=== PATIENT | female | born 1940 | race Caucasian/White ===

== ENCOUNTER → 2017-10-06 | Outpatient (CLI) | payer OTHER ==
[~2017-10-06] MED LIST: ACEASPCAF; ACET325 PO; ACYC800 PO; ALBU.083IS IH; ALBU3IS INH; ALBU90I INH; ALBU90OI INH; AMLO5; ASCO500 PO; ASPI81CH; ASPI81CH PO; ASPI81EC; ATOR40TA PO; AZIT250 PO; B-100 COMPLEX100 MG PO; BENZ100A PO; BIOTIN1 MG PO; BUPR100ER; Budeprion Sr150 MG PO; CHOL10002 PO; CILO100 PO; CLAR500 PO; CLOM50A; CORRECTOL; Calcium Magnes1 EAC1 PO; DOCU100; DOCU100 PO; DOXY100 PO; ESCI10; ESCI10 PO; ESTR1; ESTR25VT; FAMO10; FAMO20; FERSU220EL PO; FLUSAL2505 IH; FURO20; FURO20 PO; FURO40; Flonase 0.05% N16 GM; GABA300; GABA300 PO; GUAI600T33 PO; HYDACE5 PO; HYDCHL25; HYDGUAL120 PO; HYDMOR2 PO; IBUP800; LAMO100; LEVSOD100; LEVSOD112; LEVSOD50 PO; LEVSOD75 PO; LORA.5; LORA1; LORA1 PO; LORA2; LORA2 PO; Lamictal200 MG PO; MELA3 PO; METO25ER PO; METO50ER PO; METPHE20; NUTRISOURCE FI1 EACH PO; OMEP20ER PO; OTC PAIN MED; OTC SLEEP AID; OXYACE5T PO; PANT40 PO; PILO5 PO; POTCHL20ER; POTCHL20ER PO; PRAV20; PRED20 PO; PREDNISONE; PROCODE120 PO; Plavix75 MG PO; QUET100 PO; QUET200 PO; QUET25; QUET300; SENNP; SEROQUEL; SIMV40 PO; SPIHYD; SPIRIVA; Seroquel Xr400 MG PO; TIOT18 IH; TRIAOIA; VIT1CAPS12 PO; VITB100; ZOLP10
== END | disposition home or self-care (01) ==
LOC: PLD 13:45 → LAB SHORT 13:45
DX: C44.722 Squamous cell carcinoma of skin of right lower limb, including hip (principal); C44.729 Squamous cell carcinoma of skin of left lower limb, including hip; C44.619 Basal cell carcinoma of skin of left upper limb, including shoulder; C44.629 Squamous cell carcinoma of skin of left upper limb, including shoulder
CPT/HCPCS: 88305

== ENCOUNTER → 2017-11-13 | Outpatient (CLI) | payer OTHER | LOC: LAB SHORT 12:24 → PLD 12:24 | DX: C44.612 Basal cell carcinoma of skin of right upper limb, including shoulder (principal) ==

== ENCOUNTER → 2017-12-18 | Outpatient (CLI) | payer OTHER | END | disposition home or self-care (01) | LOC: PLD 15:15 → LAB SHORT 15:15 | DX: C44.722 Squamous cell carcinoma of skin of right lower limb, including hip (principal); L28.1 Prurigo nodularis | CPT/HCPCS: 88305 ==

== ENCOUNTER 2018-09-07 12:42 | Inpatient (IN) | payer OTHER ==
[~2018-09-07] VITALS: Ht 160 cm; Wt 78.1 kg
[~2018-09-07 12:42] MED LIST changes: +ALPR.5 PO; +Aspir-Low81 MG PO; +CHOICEFUL VITA1 EACH PO; +CLOP75 PO; -ESCI10 PO; +ESCI20 PO; -FERSU220EL PO; +FURO40 PO; +Ferosul325 MG PO; +METO50 PO; +MUCINEX FAST-M1 EAC1 PO; +POTA10T PO
[2018-09-07 14:05] LABS: BASOPHILS ABSOLUTE AUTO 0.04 K/mm3 (0.00-0.23); BASOPHILS PERCENT AUTO 0 % (0-2); EOSINOPHILS ABSOLUTE AUTO 0.23 K/mm3 (0.00-0.68); EOSINOPHILS PERCENT AUTO 2 % (0-6); Hematocrit 40.3 % (33.0-51.0); Hemoglobin 13.3 g/dL (11.5-16.0); IMMATURE GRAN ABSOLUTE AUTO 0.02 K/mm3 (0.00-0.10); IMMATURE GRAN PERCENT AUTO 0 % (0-1); LYMPHOCYTES ABSOLUTE AUTO 1.98 K/mm3 (0.84-5.20); LYMPHOCYTES PERCENT AUTO 21 % (21-46); MONOCYTES PERCENT AUTO 6 % (4-13); Mean Corpuscular HGB 32.4 pg (26.0-34.0); Mean Corpuscular Volume 98 fL (80-100); NEUTROPHILS ABSOLUTE AUTO 6.63 K/mm3 (1.96-9.15); NEUTROPHILS PERCENT AUTO 70 % (41-73); Platelet Count 285 K/mm3 (150-400); RDW Coefficient Variation 13.8 % (11.7-14.2); RDW Standard Deviation 50.4 fL (35.1-46.3)
[2018-09-07 14:27] LABS: Alanine Aminotransfer (ALT/SGP 21 U/L (12-78); Albumin, Blood 3.1 g/dL (3.4-5.0); Alk Phos 96 U/L (50-136); Anion Gap 4 mmol/L (6-16); Aspartate Aminotrans (AST/SGOT 29 U/L (12-37); Bilirubin, Total 0.3 mg/dL (0.1-1.0); Blood Urea Nitrogen 13 mg/dL (8-24); Bun/Creatinine Ratio 15.9 (12.0-20.0); CO2, Blood 26 mmol/L (21-32); Calcium, Blood 8.9 mg/dL (8.5-10.1); Chloride, Blood 109 mmol/L (98-108); Creatinine, Blood 0.82 mg/dL (0.40-1.00); Globulin, Blood 3.1 g/dL (2.2-4.0); Glomerular Filtration Rate >60 (60-); Glucose, Blood 159 mg/dL (70-99); Potassium, Blood 4.4 mmol/L (3.5-5.5); Sodium, Blood 139 mmol/L (136-145); Total Protein, Blood 6.2 g/dL (6.4-8.2); Troponin I <0.015 ng/mL (0.000-0.040)
[2018-09-07] MEDS ORDERED: METO50ER PO (15:09)
[2018-09-07] MEDS ORDERED: Seroquel400 MG PO (15:09)
[2018-09-07] MEDS ORDERED: LEVFLO500 PO (15:09)
[2018-09-07] MEDS ORDERED: SPIRIVA RESPIMAT4 GM INH (15:10)
[2018-09-07] MEDS ORDERED: PROMETH-CODEIN 65 ML PO (15:10)
[2018-09-07] MEDS ORDERED: Tessalon200 MG PO (15:11)
[2018-09-07] MEDS ORDERED: BENZ100A PO (15:11)
[2018-09-07] MEDS ORDERED: TIOT18 INH (17:34)
--- NOTE | 2018-09-07 17:50 | NUR ---
1655 PT ADMITTED TO MEDICAL FLOOR, SELF TRANSFERED TO BED. PT ON 2L O2 NC, LUNGS WITH WHEEZES AND COARSE THROUGHOUT. PT WITH BARKY COUGH THAT PT REPORTS IS PRODUCTIVE. VSS. SAFETY AND ROOM ORIENTATION DISCUSSED WITH PT. PT DENIES PAIN, N/V.
--- NOTE | 2018-09-08 04:31 | NUR ---
SHIFT SUMMARY: PT IS ALERT AND ORIENTED. PT IS CALM AND COOPERATIVE WITH CARE. PT CALLS APPROPRIATELY. PT IS INDEPENDENT IN THE ROOM. PT REPORTS SOB UPON EXERTION WITH INTERMITTENT COUGH, MEDICATING PER EMAR, 2 L O2 KEEPING SATS > 90%. PT DENIES PAIN, NAUSEA, AND VOMITING. PT SLEPT MUCH OF THE NIGHT. NO ACUTE CHANGES OVERNIGHT. WILL REPORT TO DAY NURSE.
[2018-09-08 05:10] LABS: BASOPHILS ABSOLUTE AUTO 0.01 K/mm3 (0.00-0.23); BASOPHILS PERCENT AUTO 0 % (0-2); EOSINOPHILS PERCENT AUTO 0 % (0-6); Hematocrit 40.8 % (33.0-51.0); Hemoglobin 13.3 g/dL (11.5-16.0); IMMATURE GRAN ABSOLUTE AUTO 0.06 K/mm3 (0.00-0.10); IMMATURE GRAN PERCENT AUTO 1 % (0-1); LYMPHOCYTES ABSOLUTE AUTO 0.96 K/mm3 (0.84-5.20); LYMPHOCYTES PERCENT AUTO 9 % (21-46); MONOCYTES ABSOLUTE AUTO 0.19 K/mm3 (0.16-1.47); MONOCYTES PERCENT AUTO 2 % (4-13); Mean Corpuscular HGB 32.2 pg (26.0-34.0); Mean Corpuscular HGB Conc 32.6 g/dL (31.5-36.5); Mean Corpuscular Volume 99 fL (80-100); Mean Platelet Volume 9.3 fL (9.1-12.4); NEUTROPHILS ABSOLUTE AUTO 9.91 K/mm3 (1.96-9.15); NEUTROPHILS PERCENT AUTO 89 % (41-73); Platelet Count 270 K/mm3 (150-400); RDW Coefficient Variation 13.9 % (11.7-14.2); RDW Standard Deviation 50.2 fL (35.1-46.3); Red Blood Cell Count 4.13 M/mm3 (3.80-5.20); White Blood Cell Count 11.13 K/mm3 (4.00-11.30)
[2018-09-08 05:32] LABS: Alanine Aminotransfer (ALT/SGP 18 U/L (12-78); Albumin, Blood 3.1 g/dL (3.4-5.0); Alk Phos 90 U/L (50-136); Anion Gap 6 mmol/L (6-16); Aspartate Aminotrans (AST/SGOT 10 U/L (12-37); Bilirubin, Total 0.4 mg/dL (0.1-1.0); Blood Urea Nitrogen 17 mg/dL (8-24); CO2, Blood 26 mmol/L (21-32); Calcium, Blood 9.3 mg/dL (8.5-10.1); Chloride, Blood 109 mmol/L (98-108); Creatinine, Blood 0.89 mg/dL (0.40-1.00); Globulin, Blood 3.1 g/dL (2.2-4.0); Glomerular Filtration Rate >60 (60-); Glucose, Blood 198 mg/dL (70-99); Sodium, Blood 141 mmol/L (136-145); Total Protein, Blood 6.2 g/dL (6.4-8.2)
--- NOTE | 2018-09-08 16:54 | NUR ---
SHIFT SUMMARY PT HAS HAD NO ACUTE CHANGES THIS SHIFT, CONTINUES TO BECOME EASILY SOB, WILL CONT TO MONITOR UNTIL REPORT GIVEN TO NOC RN.
--- NOTE | 2018-09-09 05:12 | NUR ---
VSS, AFEBRILE, A/O, STABLE, SLEPT WELL, PT C/O CORTEZ/SOB EARLY IN THE SHIFT BUT WAS COAXED INTO ACCEPTING A BREATHING TX, SINCE THEN SHE HAS SLEPT DEEPLY W/NO COMPLAINTS. WILL REPORT TO ON-COMING SHIFT.
[2018-09-09 05:52] LABS: Anion Gap 7 mmol/L (6-16); Blood Urea Nitrogen 21 mg/dL (8-24); Bun/Creatinine Ratio 29.4 (12.0-20.0); CO2, Blood 27 mmol/L (21-32); Calcium, Blood 9.7 mg/dL (8.5-10.1); Chloride, Blood 109 mmol/L (98-108); Creatinine, Blood 0.72 mg/dL (0.40-1.00); Glomerular Filtration Rate >60 (60-); Glucose, Blood 169 mg/dL (70-99); Potassium, Blood 4.3 mmol/L (3.5-5.5); Sodium, Blood 143 mmol/L (136-145)
--- NOTE | 2018-09-09 19:09 | NUR ---
SHIFT SUMMARY: NO ACUTE CHANGES TO REPORT THIS SHIFT. PT A&O; CALM AND COOPERATIVE WITH CARE; INDEPENDENT IN ROOM. IV STEROIDS & BREATHING TREATMENTS CONTINUING. REPORTY GIVEN TO ONCOMING RN.
[2018-09-09 23:31] LABS: Adenovirus Not Detected (NOT DETECT); Bordetella pertussis Not Detected (NOT DETECT); Chlamydophila pneumoniae Not Detected (NOT DETECT); Coronavirus 229E Not Detected (NOT DETECT); Coronavirus HKU1 Not Detected (NOT DETECT); Coronavirus NL63 Not Detected (NOT DETECT); Coronavirus OC43 Not Detected (NOT DETECT); Human Metapneumovirus Not Detected (NOT DETECT); Human Rhinovirus/Enterovirus Not Detected (NOT DETECT); Influenza A Not Detected (NOT DETECT); Influenza A/2009-H1 Not Detected (NOT DETECT); Influenza A/H1 Not Detected (NOT DETECT); Influenza A/H3 Not Detected (NOT DETECT); Influenza B Not Detected (NOT DETECT); Mycoplasma pneumoniae Not Detected (NOT DETECT); Parainfluenza Virus 1 Not Detected (NOT DETECT); Parainfluenza Virus 2 Not Detected (NOT DETECT); Parainfluenza Virus 3 Not Detected (NOT DETECT); Parainfluenza Virus 4 Not Detected (NOT DETECT); Respiratory Syncytial Virus Not Detected (NOT DETECT)
--- NOTE | 2018-09-09 23:46 | NUR ---
PATIENT RESPIRATORY PANEL COLLECTED AND SENT TO LAB. NEGATIVE RESULTS. PATIENT TAKEN OUT OF DROPLET PRECAUTIONS.
--- NOTE | 2018-09-10 03:54 | NUR ---
SHIFT SUMMARY PATIENT HAD NO ACUTE CHANGES OBSERVED THIS SHIFT. AXOX 3 AND INDEPENDENT IN THE ROOM. TAKES MEDICATION WHOLE WITH WATER. VSS/AFEBRILE. BREATHING TX FROM RT. RESPIRATORY PANEL SET TO LAB AND NEGATIVE. ON 2L O2 NC. SHELLFISH MEAT SEPARATOR OPERATOR REPORTS ST 113. DENIES PAIN AND N/V. CALL LIGHT IN REACH. BED IN LOWEST POSITION. WILL CONTINUE TO MONITOR UNTIL DAY SHIFT NURSE ASSUMES CARE.
[2018-09-10 05:24] LABS: BASOPHILS ABSOLUTE AUTO 0.01 K/mm3 (0.00-0.23); BASOPHILS PERCENT AUTO 0 % (0-2); EOSINOPHILS PERCENT AUTO 0 % (0-6); Hematocrit 38.4 % (33.0-51.0); Hemoglobin 12.4 g/dL (11.5-16.0); IMMATURE GRAN ABSOLUTE AUTO 0.11 K/mm3 (0.00-0.10); IMMATURE GRAN PERCENT AUTO 1 % (0-1); LYMPHOCYTES ABSOLUTE AUTO 1.31 K/mm3 (0.84-5.20); LYMPHOCYTES PERCENT AUTO 9 % (21-46); MONOCYTES ABSOLUTE AUTO 0.59 K/mm3 (0.16-1.47); MONOCYTES PERCENT AUTO 4 % (4-13); Mean Corpuscular HGB Conc 32.3 g/dL (31.5-36.5); Mean Corpuscular Volume 99 fL (80-100); Mean Platelet Volume 9.1 fL (9.1-12.4); NEUTROPHILS ABSOLUTE AUTO 13.02 K/mm3 (1.96-9.15); NEUTROPHILS PERCENT AUTO 87 % (41-73); Platelet Count 263 K/mm3 (150-400); RDW Coefficient Variation 14.2 % (11.7-14.2); RDW Standard Deviation 51.9 fL (35.1-46.3); Red Blood Cell Count 3.88 M/mm3 (3.80-5.20); White Blood Cell Count 15.04 K/mm3 (4.00-11.30)
[2018-09-10 05:51] LABS: Anion Gap 5 mmol/L (6-16); Blood Urea Nitrogen 22 mg/dL (8-24); Bun/Creatinine Ratio 28.7 (12.0-20.0); CO2, Blood 28 mmol/L (21-32); Calcium, Blood 9.2 mg/dL (8.5-10.1); Chloride, Blood 109 mmol/L (98-108); Creatinine, Blood 0.77 mg/dL (0.40-1.00); Glomerular Filtration Rate >60 (60-); Glucose, Blood 148 mg/dL (70-99); Sodium, Blood 142 mmol/L (136-145)
--- NOTE | 2018-09-10 17:27 | NUR ---
PT AOX4 AND COOPERATIVE OF ALL CARE. PT INDEPENDENT IN ROOM AND CALLS APPROPRIATELY. PT CONTINUES TO STRUGLE WITH A PERSISTANT COUGH AND GET VERY TIRED DO TO THIS. PT IS TREATED PER EMAR FOR HER COUGH AND NEW ORDERS PLACED TO EMAR FOR THIS, SO FAR SHE HAS HAD LITTLE RELIEF. WILL CONTINUE TO MONITOR.
--- NOTE | 2018-09-11 03:37 | NUR ---
SHIFT SUMMARY PATIENT HAD NO ACUTE CHANGES OBSERVED THIS SHIFT. REPORTS HARSH COUGH. GAVE SCHEDULE 21:00 MEDICATION AT 20:42 SO PATIENT COULD GET TO SLEEP EARLIER. PATIENT BELIEVED HER MEDICATIONS WERE SCHEDULED FOR 20:OO AND SHE WAS INFORMED FOR 21:00. SHE REPORTS SHE LIKES TO GO TO BED EARLY. PIV REMAINS INTACT. FIELD CROP HARVEST CONTRACTOR REPORTS ST [address] W/PAC. ON 2L O2 NC. RA BASELINE. RT IN FOR BREATHING TX. PATIENT REPORTS SHE INFORMS RT NO BREATHING TX IF SLEEPING. CALL LIGHT IN REACH. BED IN LOWEST POSITION. WILL CONTINUE TO MONITOR UNTIL DAY SHIFT NURSE ASSUMES CARE.
[2018-09-11 05:17] LABS: BASOPHILS ABSOLUTE AUTO 0.02 K/mm3 (0.00-0.23); BASOPHILS PERCENT AUTO 0 % (0-2); EOSINOPHILS PERCENT AUTO 0 % (0-6); Hematocrit 38.2 % (33.0-51.0); Hemoglobin 12.4 g/dL (11.5-16.0); IMMATURE GRAN ABSOLUTE AUTO 0.14 K/mm3 (0.00-0.10); IMMATURE GRAN PERCENT AUTO 1 % (0-1); LYMPHOCYTES ABSOLUTE AUTO 1.58 K/mm3 (0.84-5.20); LYMPHOCYTES PERCENT AUTO 10 % (21-46); MONOCYTES ABSOLUTE AUTO 0.66 K/mm3 (0.16-1.47); MONOCYTES PERCENT AUTO 4 % (4-13); Mean Corpuscular HGB Conc 32.5 g/dL (31.5-36.5); Mean Corpuscular Volume 99 fL (80-100); Mean Platelet Volume 9.3 fL (9.1-12.4); NEUTROPHILS ABSOLUTE AUTO 13.23 K/mm3 (1.96-9.15); NEUTROPHILS PERCENT AUTO 85 % (41-73); Platelet Count 266 K/mm3 (150-400); RDW Coefficient Variation 14.3 % (11.7-14.2); RDW Standard Deviation 52.1 fL (35.1-46.3); Red Blood Cell Count 3.87 M/mm3 (3.80-5.20); White Blood Cell Count 15.63 K/mm3 (4.00-11.30)
--- NOTE | 2018-09-11 07:15 | NUR ---
Assumed care of patient with Cassy from cnc machinist 2nd shift nurse
--- NOTE | 2018-09-11 17:52 | NUR ---
Shift Summary A/O x 4; Patient is independent in room. Pleasant and cooperative with care. She had an episode of shortness of breath, breathing treatment was given by RT, tolerated well. Encouraged po fluids to help thin out secretions. Wheezing and coarse coughing still present, otherwise no acute changes this shift.
--- NOTE | 2018-09-12 05:40 | NUR ---
SHIFT SUMMARY PT SLEPT WELL DURING THE NIGHT, HAS HAD OXYGEN ON AT 2L/NC T/O THE NIGHT. NO ACUTE EVENTS NOTED DURING THE NIGHT, WILL CONTINUE TO MONITOR.
[2018-09-12 09:08] LABS: BASOPHILS ABSOLUTE AUTO 0.02 K/mm3 (0.00-0.23); BASOPHILS PERCENT AUTO 0 % (0-2); EOSINOPHILS PERCENT AUTO 0 % (0-6); Hematocrit 40.8 % (33.0-51.0); Hemoglobin 13.2 g/dL (11.5-16.0); IMMATURE GRAN PERCENT AUTO 2 % (0-1); LYMPHOCYTES ABSOLUTE AUTO 1.88 K/mm3 (0.84-5.20); LYMPHOCYTES PERCENT AUTO 11 % (21-46); MONOCYTES ABSOLUTE AUTO 0.47 K/mm3 (0.16-1.47); MONOCYTES PERCENT AUTO 3 % (4-13); Mean Corpuscular HGB 31.7 pg (26.0-34.0); Mean Corpuscular HGB Conc 32.4 g/dL (31.5-36.5); Mean Corpuscular Volume 98 fL (80-100); Mean Platelet Volume 9.3 fL (9.1-12.4); NEUTROPHILS ABSOLUTE AUTO 15.04 K/mm3 (1.96-9.15); NEUTROPHILS PERCENT AUTO 85 % (41-73); Platelet Count 309 K/mm3 (150-400); RDW Coefficient Variation 14.4 % (11.7-14.2); RDW Standard Deviation 52.2 fL (35.1-46.3); Red Blood Cell Count 4.16 M/mm3 (3.80-5.20); White Blood Cell Count 17.71 K/mm3 (4.00-11.30)
[2018-09-12 09:23] LABS: Anion Gap 6 mmol/L (6-16); Blood Urea Nitrogen 24 mg/dL (8-24); Bun/Creatinine Ratio 32.5 (12.0-20.0); CO2, Blood 27 mmol/L (21-32); Calcium, Blood 8.5 mg/dL (8.5-10.1); Chloride, Blood 107 mmol/L (98-108); Creatinine, Blood 0.74 mg/dL (0.40-1.00); Glomerular Filtration Rate >60 (60-); Glucose, Blood 143 mg/dL (70-99); Potassium, Blood 4.2 mmol/L (3.5-5.5); Sodium, Blood 140 mmol/L (136-145)
--- NOTE | 2018-09-12 16:23 | NUR ---
SHIFT SUMMARY PT A&OX4. PT ANXIOUS AT TIMES, COOPERATIVE WITH CARE. PT RESTING IN BED DURING SHIFT, UP AT SIDE OF BED FOR MEALS AND IND TO BATHROOM. PT SOB WITH EXERTION AND HARSH/MOIST COUGH, 92-93% ON 2.5L O2 VIA NC. PT DENIES PAIN AND N/V. PT RECEIVING IV SOLUMEDROL AND BREATHING TREATMETNS PER RT. CALLED DR HATFIELD TO CLARIFY ORDERS FOR DISCONTINUE TELEMETRY AND PROGRESS NOTE TO RESUME TELEMETRY, NEW ORDERS FOR TELEMETRY. HS IRREGULAR THIS AFTERNOON. VSS. NO OTHER ACUTE CHANGES NOTED DURING SHIFT WILL CONTINUE TO MONITOR UNTIL REPORT GIVEN TO ONCOMING RN.
--- NOTE | 2018-09-12 17:11 | NUR ---
NOTIFIED DR HATFIELD [facility] NSR AT 90, NEW ORDERS TO DISCONTINUE TELEMETRY
--- NOTE | 2018-09-12 19:04 | NUR ---
PT REPORTS HAVING "BLOODY" SPUTUM WHEN BLOWING NOSE. PT HAD 4CM X 1/2 CM RED, HARD MASS IN TISSUE, WITH NO FURTHER BLEEDING. PLACED HUMIDIFED O2. DISCUSSED WITH PRINTING SALES REPRESENTATIVE, MONICA, WITH HUMIDIFED O2 CONTINUE TO MONITOR AND DISCUSS WITH MICHAEL MENDEZ IN THE AM. WILL CONTINUE TO MONITOR.
--- NOTE | 2018-09-12 21:30 | NUR ---
1950 PT LYING IN BED, REPORTS SOB THAT INCREASES WITH ACTIVITY. ON 2L O2 NC HUMIDIFIED AT 93%. NON PRODUCTIVE COUGH. NO OTHER APPARENT SIGNS OF DISTRESS. CALL LIGHT IS IN REACH.
--- NOTE | 2018-09-13 00:02 | NUR ---
PT LYING IN BED, EYES CLOSED, APPEARS TO BE RESTING. BREATHING IS EVEN, UNLABORED. NO APPARENT SIGNS OF DISTRESS. CALL LIGHT IS IN REACH.
--- NOTE | 2018-09-13 00:03 | NUR ---
09/12/18 2200 PT LYING IN BED, EYES CLOSED, APPEARS TO BE RESTING. BREATHING IS EVEN, UNLABORED. NO APPARENT SIGNS OF DISTRESS. CALL LIGHT IS IN REACH.
--- NOTE | 2018-09-13 04:32 | NUR ---
PT LYING IN BED, EYES CLOSED, APPEARS TO BE RESTING. WAKES EASILY TO VERBAL STIMULI. NO APPARENT SIGNS OF DISTRESS. CALL LIGHT IS IN REACH.
--- NOTE | 2018-09-13 04:33 | NUR ---
0200 PT LYING IN BED, EYES CLOSED, APPEARS TO BE RESTING. BREATHING IS EVEN, UNLABORED. NO APPARENT SIGNS OF DISTRESS. CALL LIGHT IS IN REACH.
--- NOTE | 2018-09-13 04:33 | NUR ---
PT IS AAO X 4, SOB THAT INCREASES WITH ACTIVITY, ON 2L O2 NC HUMIDIFIED AT 93%. NON PRODUCTIVE COUGH.BS WAS 209.SCD'S.
--- NOTE | 2018-09-13 05:23 | NUR ---
PT LYING IN BED, EYES CLOSED, APPEARS TO BE RESTING. BREATHING IS EVEN, UNLABORED. NO APPARENT SIGNS OF DISTRESS. CALL LIGHT IS IN REACH. NO OTHER CHANGES THIS SHIFT.
[2018-09-13 07:42] LABS: BASOPHILS ABSOLUTE AUTO 0.02 K/mm3 (0.00-0.23); BASOPHILS PERCENT AUTO 0 % (0-2); EOSINOPHILS PERCENT AUTO 0 % (0-6); Hematocrit 39.1 % (33.0-51.0); Hemoglobin 12.5 g/dL (11.5-16.0); IMMATURE GRAN ABSOLUTE AUTO 0.27 K/mm3 (0.00-0.10); IMMATURE GRAN PERCENT AUTO 2 % (0-1); LYMPHOCYTES ABSOLUTE AUTO 1.48 K/mm3 (0.84-5.20); LYMPHOCYTES PERCENT AUTO 9 % (21-46); MONOCYTES ABSOLUTE AUTO 0.44 K/mm3 (0.16-1.47); MONOCYTES PERCENT AUTO 3 % (4-13); Mean Corpuscular HGB 31.3 pg (26.0-34.0); Mean Corpuscular Volume 98 fL (80-100); Mean Platelet Volume 9.2 fL (9.1-12.4); NEUTROPHILS ABSOLUTE AUTO 13.88 K/mm3 (1.96-9.15); NEUTROPHILS PERCENT AUTO 86 % (41-73); Platelet Count 287 K/mm3 (150-400); RDW Coefficient Variation 14.3 % (11.7-14.2); RDW Standard Deviation 51.2 fL (35.1-46.3); Red Blood Cell Count 3.99 M/mm3 (3.80-5.20); White Blood Cell Count 16.09 K/mm3 (4.00-11.30)
[2018-09-13 08:14] LABS: Anion Gap 7 mmol/L (6-16); Blood Urea Nitrogen 28 mg/dL (8-24); CO2, Blood 25 mmol/L (21-32); Calcium, Blood 8.3 mg/dL (8.5-10.1); Chloride, Blood 110 mmol/L (98-108); Glomerular Filtration Rate >60 (60-); Glucose, Blood 157 mg/dL (70-99); Potassium, Blood 4.3 mmol/L (3.5-5.5); Sodium, Blood 142 mmol/L (136-145)
--- NOTE | 2018-09-13 18:02 | NUR ---
SHIFT SUMMARY PT A&OX4. ANXIOUS AT TIMES, MEDICATED PER EMAR. CALM AND COOPERATIVE WITH CARE. PT RESTING IN BED DURING SHIFT, UP IND IN ROOM. PT SOB WITH EXERTION AND HAS HARSH, NO PRODUCTIVE COUGH, ON 2L O2 VIA NC. PT RECEIVING BREATHING TREATMENT PER RT AND COUGH MEDICATIONS. PT RECEIVING IV STEROIDS. PT DENIES PAIN AND N/V DURING SHIFT. VSS. NO OTHER ACUTE CHANGES NOTED DURING SHIFT. WILL CONTINUE TO MONITOR UNTIL REPORT GIVEN TO ONCOMING RN.
--- NOTE | 2018-09-13 20:38 | NUR ---
PT LYING IN BED, REPORTS SOB THAT INCREASES WITH ACTIVITY, ON 2L O2 NC HUMIDIFIED AT 93%. NON PRODUCTIVE COUGH. SCD'S ON. NO OTHER APPARENT SIGNS OF DISTRESS. CALL LIGHT IS IN REACH.
--- NOTE | 2018-09-14 00:11 | NUR ---
PT AWAKE, REPORTS INSOMNIA, GOT PT SOME [place] TEA. WILL EVAL FOR EFFECT. NO OTHER APPARENT SIGNS OF DISTRESS. CALL LIGHT IS IN REACH.
--- NOTE | 2018-09-14 00:12 | NUR ---
09/13/18 2200 PT LYING IN BED, AWAKE, WATCHING TV. NO APPARENT SIGNS OF DISTRESS. CALL LIGHT IS IN REACH.
--- NOTE | 2018-09-14 04:35 | NUR ---
PT LYING IN BED, EYES CLOSED, APPEARS TO BE RESTING. WAKES EASILY TO VERBAL STIMULI. NO APPARENT SIGNS OF DISTRESS. CALL LIGHT IS IN REACH.
--- NOTE | 2018-09-14 04:36 | NUR ---
0200 PT LYING IN BED, EYES CLOSED, APPEARS TO BE RESTING. BREATHING IS EVEN, UNLABORED. NO APPARENT SIGNS OF DISTRESS. CALL LIGHT IS IN REACH.
--- NOTE | 2018-09-14 05:04 | NUR ---
PT IS AAO X 4. SOB THAT INCREASES WITH ACTIVITY. ON 2L O2 NC HUMIDIFIED AT 93%. NONPRODUCTIVE COUGH. BS WAS 285. SCD'S ON.
[2018-09-14 07:55] LABS: BASOPHILS ABSOLUTE AUTO 0.03 K/mm3 (0.00-0.23); BASOPHILS PERCENT AUTO 0 % (0-2); EOSINOPHILS PERCENT AUTO 0 % (0-6); Hematocrit 39.4 % (33.0-51.0); Hemoglobin 12.8 g/dL (11.5-16.0); IMMATURE GRAN ABSOLUTE AUTO 0.44 K/mm3 (0.00-0.10); IMMATURE GRAN PERCENT AUTO 4 % (0-1); LYMPHOCYTES ABSOLUTE AUTO 1.06 K/mm3 (0.84-5.20); LYMPHOCYTES PERCENT AUTO 9 % (21-46); MONOCYTES ABSOLUTE AUTO 0.38 K/mm3 (0.16-1.47); MONOCYTES PERCENT AUTO 3 % (4-13); Mean Corpuscular HGB 31.6 pg (26.0-34.0); Mean Corpuscular HGB Conc 32.5 g/dL (31.5-36.5); Mean Corpuscular Volume 97 fL (80-100); Mean Platelet Volume 9.4 fL (9.1-12.4); NEUTROPHILS ABSOLUTE AUTO 10.54 K/mm3 (1.96-9.15); NEUTROPHILS PERCENT AUTO 85 % (41-73); NRBC ABSOLUTE 0.02 K/mm3 (0.00-0.02); NRBC Auto 0.2 /100 WBC (0.0-0.2); Platelet Count 281 K/mm3 (150-400); RDW Coefficient Variation 14.2 % (11.7-14.2); RDW Standard Deviation 51.3 fL (35.1-46.3); Red Blood Cell Count 4.05 M/mm3 (3.80-5.20); White Blood Cell Count 12.45 K/mm3 (4.00-11.30)
[2018-09-14 08:14] LABS: Anion Gap 4 mmol/L (6-16); Blood Urea Nitrogen 26 mg/dL (8-24); Bun/Creatinine Ratio 35.6 (12.0-20.0); CO2, Blood 26 mmol/L (21-32); Calcium, Blood 7.9 mg/dL (8.5-10.1); Chloride, Blood 110 mmol/L (98-108); Creatinine, Blood 0.73 mg/dL (0.40-1.00); Glomerular Filtration Rate >60 (60-); Glucose, Blood 166 mg/dL (70-99); Potassium, Blood 4.4 mmol/L (3.5-5.5); Sodium, Blood 140 mmol/L (136-145)
--- NOTE | 2018-09-14 08:36 | NUR ---
PT REPORTS FEELING LIKE SHE IS NOT ABLE TO GET A FULL BREATH IN AND OUT WHILE BREATHING. PT REPORTS THAT AFTER SHE TOOK AT BITE OF OATMEAL, IT FELT LIKE IT WAS SITTING IN HER THOART AND WAS UNABLE TO GET A FULL BREATH IN OR OUT. COUGH SOUNDING HOARSE DURING EPISODE. PT REPORTS THIS HAS BEEN HAPPENING ON AND OFF OVER THE LAST 6 WEEKS, THIS HAS NOT BEEN NOTED OVER THE LAST TWO DAYS, HOWEVER WAS PREVIOUSLY REPORTED. VSS. NOTIFIED DR RINCON, NEW ORDERS FOR SWALLOW EVALUATION, WILL CONTINUE TO MONITOR.
--- NOTE | 2018-09-14 16:40 | NUR ---
SHIFT SUMMARY PT A&Ox4, CALM AND COOPERATIVE WITH CARE. PT RESTING IN BED DURING SHIFT. PT IND IN ROOM. PT DENIES PAIN AND N/V DURING SHIFT SOB WITH EXERTION, TITRATED FROM 2L O2 TO 1L O2 VIA NC THIS EVENING. PT HAD EPISODE THIS AM, SHE STATES SHE COULD NOT GET A FULL BREATHIN IN OR OUR, SHE FELT LIKE HER FOOD WAS CAUGHT IN THOART. DR RINCON NOTIFIED, SPEECH EVAL COMPLETED AND OK TO CONTINUE WITH CURRENT DIET ORDERS. CT COMPLETED THIS AFTERNOON. PT UP TO WALK THROUGH HALLS WITH SBA AND PORTABLE O2. VSS. NO OTHER ACUTE CHANGES NOTED DURING SHIFT. WILL CONTINUE TO MONITOR UNTIL REPORT GIVEN TO ONCOMING RN.
--- NOTE | 2018-09-14 21:24 | NUR ---
PT WATCHING TV. NO NEEDS AT THIS TIME. CALL LT IN REACH.
--- NOTE | 2018-09-14 22:23 | NUR ---
PT RESTING QUIETLY AT THIS TIME. CALL LT IN REACH.
--- NOTE | 2018-09-15 06:31 | NUR ---
SHIFT SUMMARY: PT CONTINUES TO GET SOB WITH ACTIVITY. CONTINUES TO HAVE A HARSH COUGH. OXYGEN TITRATED DOWN TO 1L VIA NC WITH HUMIDIFIED AIR. PT HAD NO PAIN OR NAUSEA. RESTED WELL T/O SHIFT. NO PRN'S GIVEN. NO ACUTE CHANGES. WILL CONTINUE TO MONITOR AND PROVIDE CARE UNTIL SHIFT REPORT.
[2018-09-15 07:59] LABS: BASOPHILS ABSOLUTE AUTO 0.05 K/mm3 (0.00-0.23); BASOPHILS PERCENT AUTO 0 % (0-2); EOSINOPHILS PERCENT AUTO 0 % (0-6); Hematocrit 40.4 % (33.0-51.0); IMMATURE GRAN ABSOLUTE AUTO 0.74 K/mm3 (0.00-0.10); IMMATURE GRAN PERCENT AUTO 4 % (0-1); LYMPHOCYTES ABSOLUTE AUTO 1.93 K/mm3 (0.84-5.20); LYMPHOCYTES PERCENT AUTO 11 % (21-46); MONOCYTES ABSOLUTE AUTO 0.83 K/mm3 (0.16-1.47); MONOCYTES PERCENT AUTO 5 % (4-13); Mean Corpuscular HGB 31.3 pg (26.0-34.0); Mean Corpuscular HGB Conc 32.2 g/dL (31.5-36.5); Mean Corpuscular Volume 97 fL (80-100); Mean Platelet Volume 9.4 fL (9.1-12.4); NEUTROPHILS ABSOLUTE AUTO 13.59 K/mm3 (1.96-9.15); NEUTROPHILS PERCENT AUTO 79 % (41-73); NRBC ABSOLUTE 0.02 K/mm3 (0.00-0.02); NRBC Auto 0.1 /100 WBC (0.0-0.2); Platelet Count 295 K/mm3 (150-400); RDW Coefficient Variation 14.2 % (11.7-14.2); RDW Standard Deviation 50.7 fL (35.1-46.3); Red Blood Cell Count 4.16 M/mm3 (3.80-5.20); White Blood Cell Count 17.14 K/mm3 (4.00-11.30)
[2018-09-15 08:06] LABS: BASOPHILS ABSOLUTE AUTO 0.05 K/mm3 (0.00-0.23); BASOPHILS PERCENT AUTO 0 % (0-2); EOSINOPHILS PERCENT AUTO 0 % (0-6); Hematocrit 39.8 % (33.0-51.0); IMMATURE GRAN ABSOLUTE AUTO 0.79 K/mm3 (0.00-0.10); IMMATURE GRAN PERCENT AUTO 4 % (0-1); LYMPHOCYTES ABSOLUTE AUTO 2.07 K/mm3 (0.84-5.20); LYMPHOCYTES PERCENT AUTO 11 % (21-46); MONOCYTES ABSOLUTE AUTO 0.93 K/mm3 (0.16-1.47); MONOCYTES PERCENT AUTO 5 % (4-13); Mean Corpuscular HGB 31.8 pg (26.0-34.0); Mean Corpuscular HGB Conc 32.7 g/dL (31.5-36.5); Mean Corpuscular Volume 97 fL (80-100); Mean Platelet Volume 9.5 fL (9.1-12.4); NEUTROPHILS PERCENT AUTO 79 % (41-73); NRBC ABSOLUTE 0.02 K/mm3 (0.00-0.02); NRBC Auto 0.1 /100 WBC (0.0-0.2); Platelet Count 289 K/mm3 (150-400); RDW Coefficient Variation 14.2 % (11.7-14.2); RDW Standard Deviation 49.9 fL (35.1-46.3); Red Blood Cell Count 4.09 M/mm3 (3.80-5.20); White Blood Cell Count 18.34 K/mm3 (4.00-11.30)
[2018-09-15 08:11] LABS: Anion Gap 7 mmol/L (6-16); Blood Urea Nitrogen 26 mg/dL (8-24); Bun/Creatinine Ratio 34.3 (12.0-20.0); CO2, Blood 25 mmol/L (21-32); Chloride, Blood 108 mmol/L (98-108); Creatinine, Blood 0.76 mg/dL (0.40-1.00); Glomerular Filtration Rate >60 (60-); Glucose, Blood 136 mg/dL (70-99); Potassium, Blood 4.3 mmol/L (3.5-5.5); Sodium, Blood 140 mmol/L (136-145)
[2018-09-15 08:31] LABS: Alanine Aminotransfer (ALT/SGP 19 U/L (12-78); Albumin, Blood 2.7 g/dL (3.4-5.0); Alk Phos 71 U/L (50-136); Anion Gap 6 mmol/L (6-16); Aspartate Aminotrans (AST/SGOT 7 U/L (12-37); Bilirubin, Total 0.3 mg/dL (0.1-1.0); Blood Urea Nitrogen 26 mg/dL (8-24); Bun/Creatinine Ratio 34.3 (12.0-20.0); CO2, Blood 25 mmol/L (21-32); Calcium, Blood 8.1 mg/dL (8.5-10.1); Chloride, Blood 109 mmol/L (98-108); Creatinine, Blood 0.76 mg/dL (0.40-1.00); Globulin, Blood 2.8 g/dL (2.2-4.0); Glomerular Filtration Rate >60 (60-); Glucose, Blood 136 mg/dL (70-99); Magnesium, Blood 2.5 mg/dL (1.6-2.4); Phosphorus, Blood 3.4 mg/dL (2.5-4.9); Potassium, Blood 4.3 mmol/L (3.5-5.5); Sodium, Blood 140 mmol/L (136-145); Total Protein, Blood 5.5 g/dL (6.4-8.2)
[2018-09-15] MEDS ORDERED: ACET325 (13:23)
[2018-09-15] MEDS ORDERED: MUCUS ER600 MG PO (13:25)
[2018-09-15] MEDS ORDERED: TIOT18 INH (13:26)
[2018-09-15] MEDS ORDERED: PRED10 (13:28)
--- NOTE | 2018-09-15 14:45 | NUR ---
DISCHARGE DISCHARGE MEDICATIONS AND INSTRUCTIONS EXPLAINED TO PATIENT. PATIENT STATED UNDERSTANDING. IV REMOVED WITHOUT DIFFICULTY. BELONGINGS WITH PATIENT. PATIENT TRANSFERED TO PRIVATE VEHICLE VIA WHEELCHAIR ESCORT.
== END 2018-09-15 14:07 | disposition home or self-care (01) | DRG 191 ==
LOC: ER 12:42 → MEDS 12:43
PROVIDERS: Hospitalist; Internal Medicine Endocrinology, Diabetes & Metabolism; Internal Medicine Pulmonary Disease; Physician Assistant; ADMIT Student in an Organized Health Care Education/Training Program
DX: J43.9 Emphysema, unspecified (principal); I50.30 Unspecified diastolic (congestive) heart failure; I47.1 Supraventricular tachycardia; F32.9 Major depressive disorder, single episode, unspecified; K21.9 Gastro-esophageal reflux disease without esophagitis; E78.00 Pure hypercholesterolemia, unspecified; F17.210 Nicotine dependence, cigarettes, uncomplicated; I25.10 Atherosclerotic heart disease of native coronary artery without angina pectoris; Z98.82 Breast implant status; D72.9 Disorder of white blood cells, unspecified; T38.0X5A Adverse effect of glucocorticoids and synthetic analogues, initial encounter; Y92.239 Unspecified place in hospital as the place of occurrence of the external cause; E11.65 Type 2 diabetes mellitus with hyperglycemia; E11.51 Type 2 diabetes mellitus with diabetic peripheral angiopathy without gangrene; I11.0 Hypertensive heart disease with heart failure
CPT/HCPCS: 36415; 71046; 71260; 80048; 80053; 82947; 83036; 83735; 83880; 84100; 84145; 84484; 85025; 87486; 87581; 87633; 87798; 92610; 93005; 93010; 94640; 94644; 94667; 94760; 96372; 96374; 96376; 99285-25; A9270-GY; G0378; J1650; J2930; Q9967

== ENCOUNTER 2018-10-27 08:43 | Observation (INO) | payer OTHER ==
[~2018-10-27] VITALS: Ht 160 cm; Wt 81.0 kg
[~2018-10-27 08:43] MED LIST changes: +ACET325; +LEVFLO500 PO; +MUCUS ER600 MG PO; +PRED10; +PROMETH-CODEIN 65 ML PO; +SPIRIVA RESPIMAT4 GM INH; +Seroquel400 MG PO; +TIOT18 INH; +Tessalon200 MG PO
[2018-10-27 09:08] LABS: BASOPHILS ABSOLUTE AUTO 0.04 K/mm3 (0.00-0.23); BASOPHILS PERCENT AUTO 0 % (0-2); EOSINOPHILS ABSOLUTE AUTO 0.08 K/mm3 (0.00-0.68); EOSINOPHILS PERCENT AUTO 1 % (0-6); Hematocrit 42.4 % (33.0-51.0); Hemoglobin 13.7 g/dL (11.5-16.0); IMMATURE GRAN ABSOLUTE AUTO 0.02 K/mm3 (0.00-0.10); IMMATURE GRAN PERCENT AUTO 0 % (0-1); LYMPHOCYTES ABSOLUTE AUTO 1.55 K/mm3 (0.84-5.20); LYMPHOCYTES PERCENT AUTO 17 % (21-46); MONOCYTES ABSOLUTE AUTO 0.58 K/mm3 (0.16-1.47); MONOCYTES PERCENT AUTO 6 % (4-13); Mean Corpuscular HGB 31.1 pg (26.0-34.0); Mean Corpuscular HGB Conc 32.3 g/dL (31.5-36.5); Mean Corpuscular Volume 96 fL (80-100); Mean Platelet Volume 8.8 fL (9.1-12.4); NEUTROPHILS ABSOLUTE AUTO 6.88 K/mm3 (1.96-9.15); NEUTROPHILS PERCENT AUTO 75 % (41-73); Platelet Count 234 K/mm3 (150-400); RDW Coefficient Variation 14.9 % (11.7-14.2); RDW Standard Deviation 52.9 fL (35.1-46.3); Red Blood Cell Count 4.41 M/mm3 (3.80-5.20); White Blood Cell Count 9.15 K/mm3 (4.00-11.30)
[2018-10-27 09:21] LABS: International Normalized Ratio 0.96; Prothrombin Time Results 10.2 Sec (9.7-11.5)
[2018-10-27 09:37] LABS: Anion Gap 5 mmol/L (6-16); Blood Urea Nitrogen 10 mg/dL (8-24); Bun/Creatinine Ratio 14.1 (12.0-20.0); CO2, Blood 27 mmol/L (21-32); Calcium, Blood 9.1 mg/dL (8.5-10.1); Chloride, Blood 109 mmol/L (98-108); Creatinine, Blood 0.71 mg/dL (0.40-1.00); Glomerular Filtration Rate >60 (60-); Glucose, Blood 112 mg/dL (70-99); Potassium, Blood 4.2 mmol/L (3.5-5.5); Sodium, Blood 141 mmol/L (136-145)
[2018-10-27 09:41] LABS: Alanine Aminotransfer (ALT/SGP 26 U/L (12-78); Albumin, Blood 3.6 g/dL (3.4-5.0); Albumin/Globulin Ratio 1.2 (0.8-1.8); Alk Phos 89 U/L (50-136); Anion Gap 5 mmol/L (6-16); Aspartate Aminotrans (AST/SGOT 17 U/L (12-37); Bilirubin, Total 0.6 mg/dL (0.1-1.0); Blood Urea Nitrogen 11 mg/dL (8-24); Bun/Creatinine Ratio 16.2 (12.0-20.0); CO2, Blood 27 mmol/L (21-32); Calcium, Blood 9.2 mg/dL (8.5-10.1); Chloride, Blood 109 mmol/L (98-108); Creatinine, Blood 0.68 mg/dL (0.40-1.00); Glomerular Filtration Rate >60 (60-); Glucose, Blood 114 mg/dL (70-99); Potassium, Blood 4.2 mmol/L (3.5-5.5); Sodium, Blood 141 mmol/L (136-145); Total Protein, Blood 6.6 g/dL (6.4-8.2)
--- NOTE | 2018-10-27 16:38 | NUR ---
ASSUMED CARE / ADMIT TO ICU: BEDSIDE REPORT RECEIVED FROM HC STAFF, PT ARRIVED TO UNIT AT APPROX 1525. 6FR SHEATH IN PLACE TO R FEMORAL, ACT 230 AT 1445. PROTAMINE GIVEN BY HC STAFF. WILL RECHECK PT/INR AT APPROX 1645. PER REPORT, PT RECEIVED 10 MG VERSED & 200 MCG FENTANYL. SHE IS CURRENTLY AWAKE, A&O x4. LABETALOL GIVEN BY HC STAFF FOR HTN, WHICH PERSISTS AT THIS TIME. STENTS PLACED TO BILAT COMMON ILIAC ARTERIES & EXTENSIVE BALLOONING COMPLETED. ASSESSMENT CHARTED. WILL CONTINUE TO MONITOR & UPDATE NEEDED.
[2018-10-27 17:26] LABS: Prothrombin Time Results 10.6 Sec (9.7-11.5)
--- NOTE | 2018-10-27 18:10 | NUR ---
SHIFT SUMMARY: NO ACUTE CHANGES SINCE ASSUMING CARE. SHEATH REMAINS IN PLACE, LAB RESULTS FOR PT/INR NOW WNL FOR SHEATH REMOVAL. PT IS ABLE TO FEED SELF FINGER FOODS TRAY THAT HAS BEEN GIVEN TO HER FOR DINNER & HAS NO C/O NAUSEA. MEDS PER EMAR FOR LOW BACK PAIN THAT PT STS IS EXACERBATED BY LYING FLAT FOR SO LONG. BP LABILE, SLIGHT IMPROVEMENT W/ PAIN RELIEF. WILL CONTINUE TO MONITOR & REPORT OFF TO ONCOMING RN.
--- NOTE | 2018-10-27 19:00 | NUR ---
CALL TO DR. QUINONEZ FOR PAIN MEDICATION PRIOR TO SHEATH REMOVAL.
--- NOTE | 2018-10-27 20:18 | NUR ---
SHEATH PULLED FROM RIGHT GROIN- MANUAL PRESSURE HELD TO SITE FOR 30MIN. MINIMAL OOZING TO INITIAL KATHE, SECOND KATHE PLACED WITH CLEAR OCCLUSIVE DRESSING. PT INSTRUCTED TO HOLD PRESSURE IF NEEDING TO COUGH. ABD SOFT AND NON TENDER POST SHEATH REMOVAL. NO ADDITIONAL OOZING NOTED AT THIS TIME.WILL CONTINUE TO MONITOR SITE CLOSELY. PT REMAINS IN FOWLERS POSITION AT THIS TIME. VSS
--- NOTE | 2018-10-27 23:39 | NUR ---
UPDATE PT. GROIN SITE REMAINS STABLE AT THIS TIME, NO SWELLING NOTED, NO ADDITIONAL OOZING NOTED TO DRESSING. PT. HOB ELEVATED SLIGHTLY FOR PT COMFORT AND PT ASSISTED ONTO LEFT SIDE WITH LEG REMAINING STRAIGHT. PT. REPORTS BACK PAIN FROM LAYING FLAT. PT REPORTS AT HOME SHE SLEEPS ON SIDE WITH LEGS BENT AND IS HAVING A HARD TIME GETTING SLEEP. EYE MASK PROVIDED ALONG WITH FAN AT BEDSIDE AND PT ASSISTED TO REPOSITION WITH LEG STRAIGHT AND MED FOR PAIN. PT ALSO HTN AGAIN, MED WITH LABETALOL FOR SECOND TIME THIS SHIFT WITH 10MG IV PER DR. WERNER.
--- NOTE | 2018-10-28 00:20 | NUR ---
CALL TO DR. QUINONEZ FOR CONTINUED HTN AFTER LABETALOL ADMIN. ADDITIONAL BP MEDICATIONS PLACED PER DR. WERNER.
--- NOTE | 2018-10-28 01:14 | NUR ---
PT MED FOR HTN PER DR. WERNER PT. ALSO MED AGAIN FOR PAIN PER PT. REQUEST. PT. REPORTS FEELING "UNCOMFORTABLE" AND REPORTS ACHING PAIN TO BACK 11/09. PT. MED WITH MELATONIN FOR SLEEP ASSIST AND PAIN MEDICATION PER DR. WERNER. PT. ASSISTED TO REPOSITION AT THIS TIME.
--- NOTE | 2018-10-28 04:00 | NUR ---
ASSISTED PT WITH BEDPAIN TO VOID PT. ABLE TO ASSIST WITH TURNING. RIGHT GROIN REMAINS UNCHANGED FROM PREVIOUS ASSESSMENTS. PT. REQUESTING PAIN MEDICATION FOR BACK. ASSISTED TO REPOSITION FOR COMFORT AND MED FOR PAIN PER DR. QUEZADA
--- NOTE | 2018-10-28 06:16 | NUR ---
SHIFT SUMMARY PT REMAINS ALERT AND ORIENTED T/O SHIFT. SHEATH REMOVED FROM RIGHT GROIN LAST NOC. NO SWELLING, OR DRAINAGE FROM SITE HOWEVER SMALL AMOUNT OF BRUISING NOTED TO GROIN AROUND DRESSING. SOFT AND NON TENDER. PT. ABLE TO REPOSITION SELF IN BED NEEDED FOR COMFORT. PT. DID C/O BACK PAIN T/O SHIFT AND REPORTS ITS FROM "LAYING IN BED" DENIES ANY WORSENING SINCE BEGINNING OF SHIFT BUT REPORTS ACHE CONSTANT. PT. HAD EPISODES OF HTN T/O NIGHT AND REQUIRED ADDITIONAL MEDICATIONS. VSS THIS AM. NADN. REPORT TO ONCOMING RN.
--- NOTE | 2018-10-28 07:10 | NUR ---
ASSUMED CARE: PT RESTING QUIETLY IN BED. ALERT AND OREINTED, COOPERATIVE. GROIN SITE WITH NO DRAINAGE NOTED, SITE SOFT. SLIGHT BRUISING NOTED BOTTOM RIGHT OF DRESSING. DENIES NEEDS OR CONCERNS AT THIS TIME.
--- NOTE | 2018-10-28 08:02 | NUR ---
CALL TO [facility] TO GIVE MESSAGE TO DR QUINONEZ TO COME SEE PT TO DETERMINE IF SHE CAN DC. PT SITTING UPRIGHT IN CHAIR AT THIS TIME. DENIES FURTHER NEEDS OR CONCERNS
--- NOTE | 2018-10-28 08:15 | NUR ---
CALL TO DR QUINONEZ'S CELL PHONE FOR INSTRUCTIONS. MESSAGE LEFT
--- NOTE | 2018-10-28 09:30 | NUR ---
SPOKE WITH DR QUINONEZ VIA CELL PHONE. STATES HE WILL BE HERE TO SEE PT IN 10 MINUTES
--- NOTE | 2018-10-28 12:31 | NUR ---
ENTERED ROOM TO GIVE PT DC INSTRUCTIONS AND SHE VOMITED PINK EMESIS. PT STATES SHE HAS FELT NAUSEATED OFF AND ON SINCE AFTER PROCEDURE YESTERDAY. STATES SHE WANTS TO WAIT TO RECIEVE DC INSTRUCTIONS. GIVEN NAUSEA MEDICATION. WILL CHECK BACK SHORTLY
--- NOTE | 2018-10-28 14:25 | NUR ---
PT'S IV DC'D WNL. PT GIVEN INSTRUCTIONS ABOUT GROIN SITE CARE AND FOLLOW UP APPOINTMENTS. DENIED FURTHER QUESTIONS OR CONCERNS. ESCORTED OUT VIA WHEEL CHAIR BY HOSPITAL STAFF
== END 2018-10-28 14:00 | disposition home or self-care (01) ==
LOC: MHTC 08:43 → ICUW 15:05 → MHTC 19:02 → ICUW 19:03
PROVIDERS: Internal Medicine; ADMIT Radiology Diagnostic Radiology
DX: I70.202 Unspecified atherosclerosis of native arteries of extremities, left leg (principal); I70.8 Atherosclerosis of other arteries; J44.9 Chronic obstructive pulmonary disease, unspecified; E78.5 Hyperlipidemia, unspecified; K21.9 Gastro-esophageal reflux disease without esophagitis; F31.9 Bipolar disorder, unspecified; E03.9 Hypothyroidism, unspecified; F17.210 Nicotine dependence, cigarettes, uncomplicated; Z88.1 Allergy status to other antibiotic agents; Z88.8 Allergy status to other drugs, medicaments and biological substances; Z79.899 Other long term (current) drug therapy; Z79.01 Long term (current) use of anticoagulants
CPT/HCPCS: 36415; 80048; 80053; 85025; 85347; 85610; 96374; 96375; 96376; 99152; 99153; C1714; C1725; C1769; C1876; C1884; C1887; C1894; C2623; G0378; J0360; J1644; J2250; J2405; J2720; J3010; J7030; Q9967

== ENCOUNTER 2018-12-29 11:28 | Day surgery (SDC) | payer OTHER ==
[~2018-12-29] VITALS: Ht 160 cm; Wt 80.0 kg
[~2018-12-29 11:28] MED LIST changes: +PRESERVISION A1 EACH PO
== END 2018-12-29 18:00 | disposition home or self-care (01) ==
LOC: MHTC 11:28
DX: I70.201 Unspecified atherosclerosis of native arteries of extremities, right leg (principal); E03.9 Hypothyroidism, unspecified; F32.9 Major depressive disorder, single episode, unspecified; E78.5 Hyperlipidemia, unspecified; J44.9 Chronic obstructive pulmonary disease, unspecified; F17.210 Nicotine dependence, cigarettes, uncomplicated; Z88.1 Allergy status to other antibiotic agents; Z88.8 Allergy status to other drugs, medicaments and biological substances; Z79.02 Long term (current) use of antithrombotics/antiplatelets; Z79.899 Other long term (current) drug therapy
CPT/HCPCS: 37224; 75710; 76937; 85347; 99152; 99153; C1769; C1887; C1894; C2623; J1644; J2250; J3010; J7030; Q9967

== ENCOUNTER → 2019-02-11 | Outpatient (CLI) | payer OTHER | END | disposition home or self-care (01) | LOC: LAB SHORT 15:08 → PLD 15:08 | DX: L57.0 Actinic keratosis (principal) | CPT/HCPCS: 88305 ==

== ENCOUNTER → 2020-01-25 | Outpatient (CLI) | payer OTHER | END | disposition home or self-care (01) | LOC: LAB SHORT 15:21 → PLD 15:21 | DX: D04.39 Carcinoma in situ of skin of other parts of face (principal); L81.4 Other melanin hyperpigmentation; L82.1 Other seborrheic keratosis | CPT/HCPCS: 88305 ==

== ENCOUNTER 2020-02-09 15:23 | Emergency (ER) | payer OTHER ==
[~2020-02-09] VITALS: Ht 160 cm; Wt 86.6 kg
[2020-02-09 15:58] LABS: BASOPHILS ABSOLUTE AUTO 0.04 K/mm3 (0.00-0.23); BASOPHILS PERCENT AUTO 1 % (0-2); EOSINOPHILS ABSOLUTE AUTO 0.26 K/mm3 (0.00-0.68); EOSINOPHILS PERCENT AUTO 3 % (0-6); Hematocrit 43.3 % (33.0-51.0); Hemoglobin 13.9 g/dL (11.5-16.0); IMMATURE GRAN ABSOLUTE AUTO 0.03 K/mm3 (0.00-0.10); IMMATURE GRAN PERCENT AUTO 0 % (0-1); LYMPHOCYTES ABSOLUTE AUTO 1.88 K/mm3 (0.84-5.20); LYMPHOCYTES PERCENT AUTO 23 % (21-46); MONOCYTES ABSOLUTE AUTO 0.72 K/mm3 (0.16-1.47); MONOCYTES PERCENT AUTO 9 % (4-13); Mean Corpuscular HGB 32.3 pg (26.0-34.0); Mean Corpuscular HGB Conc 32.1 g/dL (31.5-36.5); Mean Corpuscular Volume 101 fL (80-100); Mean Platelet Volume 9.2 fL (9.1-12.4); NEUTROPHILS ABSOLUTE AUTO 5.09 K/mm3 (1.96-9.15); NEUTROPHILS PERCENT AUTO 64 % (41-73); Platelet Count 240 K/mm3 (150-400); RDW Coefficient Variation 13.2 % (11.7-14.2); RDW Standard Deviation 49.2 fL (35.1-46.3); White Blood Cell Count 8.02 K/mm3 (4.00-11.30)
[2020-02-09] MEDS ORDERED: BUPROPION XL150 M1 PO (15:59)
[2020-02-09] MEDS ORDERED: QUET300 PO (15:59)
[2020-02-09] MEDS ORDERED: TRAZ100 PO (15:59)
[2020-02-09] MEDS ORDERED: PLAVIX75 MG PO (15:59)
[2020-02-09 16:12] LABS: International Normalized Ratio 0.98; Prothrombin Time Results 10.5 Sec (9.7-11.5)
[2020-02-09 16:19] LABS: Alanine Aminotransfer (ALT/SGP 51 U/L (12-78); Albumin, Blood 3.6 g/dL (3.4-5.0); Albumin/Globulin Ratio 1.1 (0.8-1.8); Alk Phos 97 U/L (50-136); Anion Gap 6 mmol/L (6-16); Aspartate Aminotrans (AST/SGOT 30 U/L (12-37); Bilirubin, Total 0.2 mg/dL (0.1-1.0); Blood Urea Nitrogen 12 mg/dL (8-24); CO2, Blood 27 mmol/L (21-32); Calcium, Blood 8.8 mg/dL (8.5-10.1); Chloride, Blood 107 mmol/L (98-108); Creatinine, Blood 0.86 mg/dL (0.40-1.00); Globulin, Blood 3.2 g/dL (2.2-4.0); Glomerular Filtration Rate >60 (60-); Glucose, Blood 70 mg/dL (70-99); Sodium, Blood 140 mmol/L (136-145); Total Protein, Blood 6.8 g/dL (6.4-8.2)
[2020-02-09] MEDS ORDERED: MECL12.5 PO (18:29)
== END 2020-02-09 19:02 | disposition home or self-care (01) ==
LOC: ER 15:23
PROVIDERS: Physician Assistant
DX: R26.9 Unspecified abnormalities of gait and mobility (principal); R53.1 Weakness; R29.810 Facial weakness; F32.9 Major depressive disorder, single episode, unspecified; K21.9 Gastro-esophageal reflux disease without esophagitis; E78.5 Hyperlipidemia, unspecified; I25.10 Atherosclerotic heart disease of native coronary artery without angina pectoris; I11.0 Hypertensive heart disease with heart failure; I50.30 Unspecified diastolic (congestive) heart failure; F17.210 Nicotine dependence, cigarettes, uncomplicated; J44.9 Chronic obstructive pulmonary disease, unspecified; Z79.899 Other long term (current) drug therapy; Z88.8 Allergy status to other drugs, medicaments and biological substances; Z79.02 Long term (current) use of antithrombotics/antiplatelets
CPT/HCPCS: 36415; 70450; 70551; 80053; 85025; 85610; 93005; 93010; 99285-25

== ENCOUNTER 2020-06-08 08:30 | Day surgery (SDC) | payer OTHER ==
[~2020-06-08] VITALS: Ht 160 cm; Wt 82.7 kg
[~2020-06-08 08:30] MED LIST changes: +Budeprion Xl300 MG PO; +MECL12.5 PO; +PLAVIX75 MG PO; +QUET300 PO; +TRAZ100 PO
[2020-06-08] MEDS ORDERED: ALPR.5 PO (08:57)
--- NOTE | 2020-06-08 09:11 | NUR ---
PT GETTING INTO BED PT SLID TO FLOOR LANDING ON BOTTOM, IRIS FILLED OUT. VS STABLE
--- NOTE | 2020-06-08 14:42 | NUR ---
PT TO BATHROOM PER SELF, DRESSES SELF. LEFT GROIN SITE STABLE. SALINE LOCK REMOVED WITH CATHETER INTACT. DISCHARGE INSTRUCTIONS REVIEWED WITH PT. PT VERBALIZES UNDERSTANDING OF INSTRUCTIONS. WAITING FOR RIDE SERVICE AT THIS TIME.
--- NOTE | 2020-06-08 14:53 | NUR ---
PT TO RIDE PER W/C WITH ONE STAFF.
== END 2020-06-08 14:40 | disposition home or self-care (01) ==
LOC: MHTC 08:30
DX: I70.213 Atherosclerosis of native arteries of extremities with intermittent claudication, bilateral legs (principal); I10 Essential (primary) hypertension; J44.9 Chronic obstructive pulmonary disease, unspecified; K21.9 Gastro-esophageal reflux disease without esophagitis; F31.9 Bipolar disorder, unspecified; E03.9 Hypothyroidism, unspecified; E78.5 Hyperlipidemia, unspecified; Z88.8 Allergy status to other drugs, medicaments and biological substances; Z88.1 Allergy status to other antibiotic agents; Z20.822 Contact with and (suspected) exposure to COVID-19; Z79.02 Long term (current) use of antithrombotics/antiplatelets; Z79.899 Other long term (current) drug therapy; Z87.891 Personal history of nicotine dependence
CPT/HCPCS: 36140; 37221; 37222; 37225; 37228; 37232; 75716; 75774; 85347; 99152; 99153; C1714; C1725; C1760; C1769; C1876; C1887; C1894; C2623; J1644; J2250; J3010; J7030; J7040; J7050; Q9967

== ENCOUNTER 2020-11-14 09:16 | Day surgery (SDC) | payer OTHER ==
[~2020-11-14] VITALS: Ht 160 cm; Wt 85.0 kg
[2020-11-14] MEDS ORDERED: MELATONIN PO (11:01)
[2020-11-14] MEDS ORDERED: MULTI-VITAMIN1 EAC2 PO (11:03)
[2020-11-14] MEDS ORDERED: Feosol45 MG PO (11:04)
[2020-11-14] MEDS ORDERED: PRESERVISION A1 EAC1 PO (11:05)
[2020-11-14] MEDS ORDERED: BANOPHEN25 MG PO (11:06)
--- NOTE | 2020-11-14 15:31 | NUR ---
PRESSURE HELD UNTIL 1524.-HEMATOMA REMIANS PRESENT-SMALLER IN SIZE AND SOFTER AT THIS TIME. (ON UPPER THIGH GOING TO HID HIP ON RIGHT SIDE. 7LBS PRESSURE ON GROIN AREA AT THIS TIME. WILL CONTINUE TO MONITOR.
--- NOTE | 2020-11-14 16:00 | NUR ---
PRESSURE HELD FOR 25 MIN ON R GRON SITE. HEMATOMA NOTED TOWARDS GROIN AND DOWN AND UP HIP AREA. THIS IS THE SAME AREA THAT THE HEMATOMA WAS WHEN ARRIVING TO RECOVERY THAT WAS RESOLVED WITH PRESSURE. PRESSURE HELD FROM [id number].
--- NOTE | 2020-11-14 17:15 | NUR ---
DR. QUINONEZ IN TO EVALUTE PT GROIN SITE. PT WILL BE TRANFERED TO PCU FOR OVERNIGHT OVSERVATION.
--- NOTE | 2020-11-14 17:45 | NUR ---
SBAR GIVEN TO JAYCOB Chery RN. PT REMAINED A&OX3 AND STATED SOME PAIN WITH GROIN PRESSURE HOLD. HEMATOMA APEARS TO BE UNDER CONTROL NOW. SITE IS SOFT AND TENDER TO TOUCH-BRUISING NOTED IN RIGHT GROIN AREA-DOWN TO MID OUTTER HIP, 1/4 DOWN FRONT OF LEG, AND THREE INCHES DOWN INTO GROIN SIDE. R RADIAL SITE-ALL AIR REMOVED @ 1710 IN TR BAND-BAND REMIANS IN PLACE. LEFT PEDAL SITE REMAINS CDI-NO HEMATOMA NOTED. -CDI-NO HEMATOMA NOTED. VSS. PT AWAITING TRANSFER TO PCU.
--- NOTE | 2020-11-15 05:31 | NUR ---
shift summary pt rested well through night. alert and oriented, able to make needs known. cooperative with plan of care. r groin hematoma is not worsened and has softened thorugh the shift. tele nsr. sats >90% on room air. pain x2 with desired outcome. stand by to bsc. planning for dc in am per ant. call light within reach, bed in lowest posiiton. will continue to monitor.
--- NOTE | 2020-11-15 08:00 | NUR ---
pt laying in bed awake a/ox3, pleasant and coopertive with care, follows commands well, reports back pain, was medicated recently, has three access sites, wrist and left foot are clear, no drainage or swelling, site to right femeral has large purple bruise around site, was reported it is unchanged from last night, a bit softer, no drainage noted, denies pain, feels ok to go home today, call light in reach.
--- NOTE | 2020-11-15 10:53 | NUR ---
SITE CHECK WITH DR. QUINONEZ. SITE CHECK PERFORMED WITH DR. QUINONEZ. SITE REMAINS UNCHANGED FROM YESTERDAY. STABLE SITE-BRUISING UNCHAGNED AND LESS TENDER TO TOUCH. PT A&OX3 AND DENIES ANY PAIN AT THIS TIME. DR. ARRIAZA STATED: "SHE CAN GO HOME AT ANYTIME". SBAR GIVEN TO SHERON Hicks RN.
--- NOTE | 2020-11-15 12:55 | NUR ---
after Dr. Merrill was in to see her he cleared her for discharge to home. went over instructions with her, gave her instructions for wrist care, she verbalized understanding, iv removed intact, arm board in place, left via wheelchair with jewelry sorter in attendence.
== END 2020-11-15 12:58 | disposition home or self-care (01) ==
LOC: MHTC 09:16 → PCU 18:00 → MHTC 11-15 12:58
DX: I70.213 Atherosclerosis of native arteries of extremities with intermittent claudication, bilateral legs (principal)
CPT/HCPCS: 37221; 37222; 37227; 75716; 75774; 76937; 85347; 93005; 93010; 93926; 99152; 99153; A9270; C1714; C1725; C1760; C1769; C1874; C1876; C1887; C1894; C2623; J1644; J2060; J2250; J3010; J7030; J7040; J7050; Q9967

== ENCOUNTER → 2020-12-25 | Outpatient (CLI) | payer OTHER ==
[~2020-12-25] MED LIST changes: +BANOPHEN25 MG PO; +Feosol45 MG PO; +MELATONIN PO; +MULTI-VITAMIN1 EAC2 PO; +PRESERVISION A1 EAC1 PO
== END | disposition home or self-care (01) ==
LOC: LAB 15:39 → LAB SHORT 15:39
DX: D48.5 Neoplasm of uncertain behavior of skin (principal)
CPT/HCPCS: 88305

== ENCOUNTER → 2021-06-11 | Outpatient (CLI) | payer OTHER | END | disposition home or self-care (01) | LOC: LAB SHORT 14:53 | DX: C44.519 Basal cell carcinoma of skin of other part of trunk (principal); D04.5 Carcinoma in situ of skin of trunk | CPT/HCPCS: 88305 ==

== ENCOUNTER 2021-09-18 08:02 | Day surgery (SDC) | payer OTHER ==
[~2021-09-18] VITALS: Ht 160 cm; Wt 85.3 kg
[~2021-09-18 08:02] MED LIST changes: +Aspir 8181 MG PO; -QUET300 PO; +QUETIAPINE FUM400 M6 PO
[2021-09-18] MEDS ORDERED: ATOR40TA PO (08:23)
[2021-09-18] MEDS ORDERED: DOCU100 PO (08:24)
[2021-09-18] MEDS ORDERED: MERIBIN5 MG PO (08:24)
[2021-09-18] MEDS ORDERED: Apple Cider Vi300 MG PO (08:24)
--- NOTE | 2021-09-18 13:00 | NUR ---
PT RESTING ON GURNEY POST PROCEDURE, APPEARS TO BE RESTING WITH EYES CLOSED. RIGHT GROIN SITE REVIEWED WITH AUTO MECHANIC APPRENTICE, SITE SOFT NON TENDER WITH NO BLEEDING OR OOZING NOTED. PT LAYING SUPINE ON GURNEY IN REVERSE TRENDELENBERG POSITION. NO DISTRESS NOTED. CALL LIGHT IN REACH. VSS.
--- NOTE | 2021-09-18 14:14 | NUR ---
HOB RAISED TO 45 DEGREES, PT PROVIDED WITH MEAL TRAY. TOLERATES WITH NO DIFFICULTIES. RIGHT GROIN SITE REMAINS SOFT WITH NO BLEEDING NOTED. PT DENIES PAIN. WILL CONTINUE TO MONITOR.
--- NOTE | 2021-09-18 15:09 | NUR ---
DR QUINONEZ AT BEDSIDE TO DISCUSS PLAN OF CARE AND DISCHARGE INSTRUCTIONS. PT VERBALIZES UNDERSTANDING. QUESTIONS ANSWERED. RIGHT GROIN SITE REMAINS SOFT NON TENDER. NO BLEEDING OR OOZING NOTD. HOB RAISED TO 90 DEGREES. CALL LIGHT IN REACH.
--- NOTE | 2021-09-18 16:08 | NUR ---
PT UP TO RESTROOM, SLOW STEADY GAIT. UNMEASURED VOID. RIGHT GROIN SITE SOFT NON TENDER DENIES PAIN, DRESSING REPLACED WITH KATHE PAD FOR SCANT OOZING THAT WAS NOTED. ULICES BOONE CALLED FOR TRANSPORTATION ARRANGEMENT. PT PROVIDED WITH WITH DISCHARGE INSTRUCTIONS IN [facility] FOLDER. VERBALIZED UNDERSTANDING OF INSTRUCTIONS. VSS. NO DISTRESS NOTED, PT SITTING ON EDGE OF BED AWAITING RIDE HOME.
--- NOTE | 2021-09-18 16:40 | NUR ---
PT VERBALIZED UNDERSTANDING OF DISCHARGE INSTRUCTIONS. PAPERWORK PROVIDED IN FOLDER. IV REMOVED TO LAC WITH CATH INTACT, PRESSURE DRESSING APPLIED. RIGHT GROIN SITE REMAINS SOFT NON TENDER WITH NO BLEEDING OR OOZING NOTED. PT TAKEN BY W/C TO PRIVATE VEHICLE FOR TRANSPORTATION HOME. NO ACUTE DISTRESS NOTED AT TIME OF DISCHARGE. ENCOURAGED TO CALL FOR ANY COMPLICATIONS AND FOLLOW UP SCHEDULED FOR NEXT PROCEDURE.
== END 2021-09-18 16:38 | disposition home or self-care (01) ==
LOC: MHTC 08:02
DX: I70.223 Atherosclerosis of native arteries of extremities with rest pain, bilateral legs (principal); J44.9 Chronic obstructive pulmonary disease, unspecified; E78.5 Hyperlipidemia, unspecified; K21.9 Gastro-esophageal reflux disease without esophagitis; Z88.8 Allergy status to other drugs, medicaments and biological substances; Z87.891 Personal history of nicotine dependence
CPT/HCPCS: 76937; 85347; 99152; 99153; C1714; C1725; C1760; C1769; C1874; C1887; C1894; C2623; J1644; J2250; J3010; J7030; J7040; Q9967

== ENCOUNTER → 2021-10-24 | Outpatient (CLI) | payer OTHER ==
[~2021-10-24] MED LIST changes: +Apple Cider Vi300 MG PO; +MERIBIN5 MG PO
== END | disposition home or self-care (01) ==
LOC: LAB SHORT 11:41 → LAB 11:41
DX: C44.519 Basal cell carcinoma of skin of other part of trunk (principal)
CPT/HCPCS: 88305

== ENCOUNTER → 2022-01-30 | Outpatient (CLI) | payer OTHER | END | disposition home or self-care (01) | LOC: LAB SHORT 14:50 | DX: C44.519 Basal cell carcinoma of skin of other part of trunk (principal) | CPT/HCPCS: 88305 ==

== ENCOUNTER → 2022-03-28 | Outpatient (CLI) | payer OTHER | LOC: LAB 12:03 → LAB SHORT 12:03 | DX: L57.0 Actinic keratosis (principal) | CPT/HCPCS: 88305 ==

== ENCOUNTER → 2022-10-03 | Outpatient (CLI) | payer OTHER ==
[~2022-10-03] MED LIST changes: +CEFP200 PO
== END | disposition home or self-care (01) ==
LOC: LAB SHORT 12:28 → LAB 12:28
DX: L82.1 Other seborrheic keratosis (principal); L72.0 Epidermal cyst
CPT/HCPCS: 88304; 88305

== ENCOUNTER 2022-11-13 08:51 | Day surgery (SDC) | payer OTHER ==
[2022-11-13] VITALS (10 sets, daily range): BP systolic 119–184; BP diastolic 48–92
[~2022-11-13] VITALS: Ht 160 cm; Wt 85.3 kg
[2022-11-13] MEDS ORDERED: Lisinopril2.5 MG PO (09:04)
--- NOTE | 2022-11-13 11:44 | NUR ---
pt to recovery room from lab. pt sleeping but is easily arousable. report from david sandoval.
--- NOTE | 2022-11-13 11:53 | NUR ---
GROIN SITE SOFT AND NON-TENDER PER PT. NO BLEEDING NOTED.
--- NOTE | 2022-11-13 13:34 | NUR ---
pt sitting up eating lunch tray. pt a&ox4. groin site soft and non-tender per pt. no bleedng noted.
--- NOTE | 2022-11-13 14:40 | NUR ---
pt given dc instructions and verbalized understanding. iv out. pt changed into clothes. groin site soft and non-tender per pt. no bleeding noted. [facility] transport to take pt home.
== END 2022-11-13 15:04 | disposition home or self-care (01) ==
LOC: MHTC 08:51
DX: I70.229 Atherosclerosis of native arteries of extremities with rest pain, unspecified extremity (principal); J44.9 Chronic obstructive pulmonary disease, unspecified; I10 Essential (primary) hypertension; Z87.891 Personal history of nicotine dependence; Z88.8 Allergy status to other drugs, medicaments and biological substances; Z88.5 Allergy status to narcotic agent; Z91.040 Latex allergy status
CPT/HCPCS: 37226; 75625; 75716; 75774; 76937; 99152; 99153; C1725; C1760; C1769; C1874; C1887; C1894; C2623; J1644; J2250; J3010; J7030; J7050; Q9967

== ENCOUNTER 2023-05-15 10:41 | Day surgery (SDC) | payer OTHER ==
[~2023-05-15] VITALS: Ht 160 cm; Wt 89.4 kg
[~2023-05-15 10:41] MED LIST changes: +FINA5 PO; +Lisinopril2.5 MG PO
[2023-05-15 11:44] VITALS: BP 116/93
--- NOTE | 2023-05-15 14:30 | NUR ---
[facility] to [facility] alert and responds appropriately. right groin site soft and nontender, no hematoma, no bleeding
--- NOTE | 2023-05-15 15:30 | NUR ---
patient sitting up in bed. eating lunch right groin site stable
--- NOTE | 2023-05-15 16:30 | NUR ---
patient up and dressed by self. right groin site remains soft and nontender dressing D&I. no hematoma, no bleeding
--- NOTE | 2023-05-15 16:55 | NUR ---
patient verbalized understanding of discharge instructions and precautions. no further questions.iv site dced with catheter intact. right groin site unchanged, patient transferred via wheel chair to [facility] [address] ride.
[2023-05-23] MEDS ORDERED: Cyclobenzaprine5 MG PO (13:59)
[2023-05-23] MEDS ORDERED: THERA-D2000 UNIT PO (14:00)
[2023-05-23] MEDS ORDERED: PREG75 PO (14:02)
[2023-05-23] MEDS ORDERED: Preservision S1 EACH PO (14:06)
[2023-05-23] MEDS ORDERED: B COMPLEX PO (14:06)
[2023-05-23] MEDS ORDERED: OMEGA 3,6,9 PO (14:07)
== END 2023-05-15 16:42 | disposition home or self-care (01) ==
LOC: MHTC 10:41
DX: I70.223 Atherosclerosis of native arteries of extremities with rest pain, bilateral legs (principal); L97.822 Non-pressure chronic ulcer of other part of left lower leg with fat layer exposed; E78.5 Hyperlipidemia, unspecified; J44.9 Chronic obstructive pulmonary disease, unspecified; K21.9 Gastro-esophageal reflux disease without esophagitis; E03.9 Hypothyroidism, unspecified; Z87.891 Personal history of nicotine dependence; Z88.5 Allergy status to narcotic agent; Z88.1 Allergy status to other antibiotic agents; Z79.02 Long term (current) use of antithrombotics/antiplatelets; Z79.899 Other long term (current) drug therapy
CPT/HCPCS: 37225; 75625; 75716; 75774; 76937; 99152; 99153; C1714; C1725; C1760; C1769; C1887; C1894; C2623; J1200; J1644; J2250; J3010; J7030; J7050; Q9967

== ENCOUNTER 2023-05-27 11:21 | Day surgery (SDC) | payer OTHER ==
[~2023-05-27] VITALS: Ht 160 cm; Wt 89.4 kg
[~2023-05-27 11:21] MED LIST changes: +B COMPLEX PO; +Cyclobenzaprine5 MG PO; +OMEGA 3,6,9 PO; +PREG75 PO; +Preservision S1 EACH PO; +THERA-D2000 UNIT PO
[2023-05-27 12:06] LABS: BASOPHILS ABSOLUTE AUTO 0.05 K/mm3 (0.00-0.23); BASOPHILS PERCENT AUTO 1 % (0-2); EOSINOPHILS ABSOLUTE AUTO 0.25 K/mm3 (0.00-0.68); EOSINOPHILS PERCENT AUTO 3 % (0-6); Hematocrit 37.3 % (33.0-51.0); Hemoglobin 12.1 g/dL (11.5-16.0); IMMATURE GRAN ABSOLUTE AUTO 0.04 K/mm3 (0.00-0.10); IMMATURE GRAN PERCENT AUTO 0 % (0-1); LYMPHOCYTES ABSOLUTE AUTO 1.78 K/mm3 (0.84-5.20); LYMPHOCYTES PERCENT AUTO 19 % (21-46); MONOCYTES ABSOLUTE AUTO 0.67 K/mm3 (0.16-1.47); MONOCYTES PERCENT AUTO 7 % (4-13); Mean Corpuscular HGB 31.9 pg (26.0-34.0); Mean Corpuscular HGB Conc 32.4 g/dL (31.5-36.5); Mean Corpuscular Volume 98 fL (80-100); Mean Platelet Volume 9.3 fL (9.1-12.4); NEUTROPHILS ABSOLUTE AUTO 6.68 K/mm3 (1.96-9.15); NEUTROPHILS PERCENT AUTO 71 % (41-73); Platelet Count 259 K/mm3 (150-400); RDW Coefficient Variation 13.4 % (11.7-14.2); RDW Standard Deviation 48.2 fL (35.1-46.3); Red Blood Cell Count 3.79 M/mm3 (3.80-5.20); White Blood Cell Count 9.47 K/mm3 (4.00-11.30)
[2023-05-27 12:24] LABS: Bun/Creatinine Ratio 16.6 (12.0-20.0); Creatinine, Blood 0.78 mg/dL (0.40-1.00); Potassium, Blood 4.1 mmol/L (3.5-5.5)
[2023-05-27 14:53] VITALS: BP 133/103
[2023-05-27 15:00] VITALS: BP 142/77
--- NOTE | 2023-05-27 15:43 | NUR ---
PT VERBALIZED UNDERSTANDING OF WRITTEN AND VERBAL D/C INST. PT AMB IN RECOVERY RM /S DIFFICULTY. -BLEEDING OR SWELLING L GROIN AREA. IV REMOVED. PT TAKEN OUT OF THE [facility] VIA W/C.
== END 2023-05-27 16:24 | disposition home or self-care (01) ==
LOC: MHTC 11:21
PROVIDERS: Radiology Diagnostic Radiology
DX: I70.223 Atherosclerosis of native arteries of extremities with rest pain, bilateral legs (principal); L97.922 Non-pressure chronic ulcer of unspecified part of left lower leg with fat layer exposed; K21.9 Gastro-esophageal reflux disease without esophagitis; J44.9 Chronic obstructive pulmonary disease, unspecified; Z87.891 Personal history of nicotine dependence
CPT/HCPCS: 37227; 75625; 75716; 75774; 76937; 80048; 85025; 99152; 99153; C1714; C1725; C1753; C1760; C1769; C1874; C1887; C1894; C2623; J1200; J1644; J2250; J3010; J7030; J7050; Q9967

== ENCOUNTER 2024-03-19 10:55 | Day surgery (SDC) | payer OTHER ==
[2024-03-19] VITALS (7 sets, daily range): BP systolic 124–149; BP diastolic 70–114
[~2024-03-19] VITALS: Ht 160 cm; Wt 84.0 kg
[2024-03-19] MEDS ORDERED: OZEMPIC0.25 MG/02 SQ (11:15)
[2024-03-19] MEDS ORDERED: Midazolam HCl 1MG / ML 2ML Vial ONE ×3 (12:06→13:16)
[2024-03-19] MEDS ORDERED: NS 2,000 ML IV ONE (12:07)
[2024-03-19] MEDS ORDERED: NS 250 ML IV ONE (12:07)
[2024-03-19] MEDS ORDERED: Heparin Sodium 1000 Units/ML 10ML MDV ONE ×2 (12:07→13:16)
[2024-03-19] MEDS ORDERED: FentaNYL Citrate 50 MCG/ML 2 ML Injection ONE ×2 (12:07→12:39)
[2024-03-19] MEDS ORDERED: Nitroglycerin 2 MG/20 ML BTL ONE (13:08)
[2024-03-19] MEDS ORDERED: Verapamil HCL 2.5 MG/ML 2ML Injection ONE (13:08)
--- NOTE | 2024-03-19 14:35 | NUR ---
PATIENT ARRIVED TO [facility] RECOVERY ROOM, AWAKE AND RESPONDS APPROPRIATELY TO QUSTIONS, RIGHT GROIN SITE SOFT AND NONTENDER, NO HEMATOMA OR BLEEDING. PULSES PER DOPPLER
[2024-03-19] MEDS ORDERED: XARELTO20 MG PO (15:26)
--- NOTE | 2024-03-19 16:48 | NUR ---
patient sitting up, dressed, patient verbalized understanding of discharge instructions and precautions, no further questions,right groin site remains soft and nontender, nohematoma or bleeding, dressing D&i, iv site dced with catheter intact.patient discharged via wheel cahir to van driver taking her home.
== END 2024-03-19 16:53 | disposition home or self-care (01) ==
LOC: MHTC 10:55
DX: I70.223 Atherosclerosis of native arteries of extremities with rest pain, bilateral legs (principal); I87.2 Venous insufficiency (chronic) (peripheral); J44.9 Chronic obstructive pulmonary disease, unspecified; F31.9 Bipolar disorder, unspecified; E78.5 Hyperlipidemia, unspecified; K21.9 Gastro-esophageal reflux disease without esophagitis; E03.9 Hypothyroidism, unspecified; Z79.82 Long term (current) use of aspirin; Z87.891 Personal history of nicotine dependence; Z88.8 Allergy status to other drugs, medicaments and biological substances
CPT/HCPCS: 37227; 37228; 75625; 75716; 75774; 76937; 85347; 99152; 99153; C1714; C1725; C1760; C1769; C1874; C1887; C1894; C2623; J1644; J2250; J3010; J7030; J7050; Q9967

== ENCOUNTER 2024-03-19 21:07 | Emergency (ER) | payer OTHER ==
[~2024-03-19] VITALS: Ht 160 cm; Wt 79.8 kg
[~2024-03-19 21:07] MED LIST changes: +OZEMPIC0.25 MG/02 SQ; +XARELTO20 MG PO
[2024-03-19 21:15] VITALS: BP 110/41
== END 2024-03-19 21:36 | disposition home or self-care (01) ==
LOC: ER 21:07
DX: I97.620 Postprocedural hemorrhage of a circulatory system organ or structure following other procedure (principal); I11.0 Hypertensive heart disease with heart failure; I50.30 Unspecified diastolic (congestive) heart failure; K21.9 Gastro-esophageal reflux disease without esophagitis; E78.5 Hyperlipidemia, unspecified; E11.9 Type 2 diabetes mellitus without complications; Z87.891 Personal history of nicotine dependence; Z79.02 Long term (current) use of antithrombotics/antiplatelets; Z79.82 Long term (current) use of aspirin; Z79.899 Other long term (current) drug therapy; Z88.8 Allergy status to other drugs, medicaments and biological substances; Z88.5 Allergy status to narcotic agent
CPT/HCPCS: 99283

== ENCOUNTER 2024-08-10 08:42 | Emergency (ER) | payer OTHER ==
[~2024-08-10] VITALS: Ht 160 cm; Wt 74.8 kg
[~2024-08-10 08:42] MED LIST changes: +BUPROPION XL150 M1 PO; +MELATONIN5 M1 PO
[2024-08-10] MEDS ORDERED: QUEtiapine Fumarate 200 MG Tab PO SCH (21:00)
[2024-08-10] MEDS ORDERED: Melatonin 5 MG Tablet PO SCH (21:00)
[2024-08-10] MEDS ORDERED: HYDROcodone 5-APAP 325 TAB PO PRN (23:10)
[2024-08-11] MEDS ORDERED: HYDROcodone 5-APAP 325 TAB PO PRN (02:55)
[2024-08-11 09:31] VITALS: BP 122/90
== END 2024-08-11 12:03 ==
LOC: ER 08:42
DX: T84.84XA Pain due to internal orthopedic prosthetic devices, implants and grafts, initial encounter (principal); K21.9 Gastro-esophageal reflux disease without esophagitis; J44.9 Chronic obstructive pulmonary disease, unspecified; Z79.899 Other long term (current) drug therapy; Z79.82 Long term (current) use of aspirin
CPT/HCPCS: 73502; 82947; 97116; 97162; 99285-25; A9270

== ENCOUNTER 2024-08-23 02:20 | Day surgery (SDC) | payer OTHER ==
[2024-08-23] MEDS ORDERED: Lidocaine HCl 4% Cream 5 GM ONE (08:31)
== END 2024-08-23 22:57 | disposition home or self-care (01) ==
LOC: WOUND 02:20
DX: L89.153 Pressure ulcer of sacral region, stage 3 (principal); L89.613 Pressure ulcer of right heel, stage 3; I11.0 Hypertensive heart disease with heart failure; I50.32 Chronic diastolic (congestive) heart failure; E11.40 Type 2 diabetes mellitus with diabetic neuropathy, unspecified; I25.10 Atherosclerotic heart disease of native coronary artery without angina pectoris; E11.51 Type 2 diabetes mellitus with diabetic peripheral angiopathy without gangrene; I70.213 Atherosclerosis of native arteries of extremities with intermittent claudication, bilateral legs; K21.9 Gastro-esophageal reflux disease without esophagitis; Z87.891 Personal history of nicotine dependence; J44.9 Chronic obstructive pulmonary disease, unspecified
CPT/HCPCS: A6214; A9270; G0463